=== PATIENT | female | born 1975 | race Caucasian/White ===

== ENCOUNTER 2016-07-14 19:16 | Emergency (ER) | payer OTHER ==
[~2016-07-14] VITALS: Ht 162.6 cm; Wt 90.7 kg
[2016-07-14 19:42] VITALS: BP 151/94
--- NOTE | 2016-07-14 21:03 | ED ANKLE/FOOT INJURY COMPLAINT ---
History of Present Illness General Chief Complaint: Foot or Ankle Injury Stated Complaint: L FOOT INJURY Source: patient Exam Limitations: no limitations Vital Signs & Intake/Output Vital Signs & Intake/Output Vital Signs Date Time Temp Pulse Resp B/P Pulse O2 O2 Flow FiO2 Ox Delivery Rate 07/14 1941 98 20 151/94 97 Room Air Allergies Coded Allergies: codeine (HIVES 07/14/16) Triage Note: PER PT SEEN AT [facility] EARLY AM, FOR BACK AND SCIATICA PAIN XR AND PAIN MEDS WITH GOOD EFFECT, WENT HOME SLEPT IT OFF AND WHEN AWOKE COULD NOT FEEL L FOOT BEND OVER IT NOW SWOLLEN AND DEFORMITY ? FX. DENIES PAIN. Triage Nurses Notes Reviewed? yes Occurred: just prior to arrival Duration: hour(s): Timing: recent history Severity: moderate, severe Pain/Injury Location: Left: Ankle. Method of Injury: twisted No Modifying Factors: none : No Patient currently breastfeeds: No HPI: 40-year-old female comes into emergency room with complaints of left ankle pain. Symptoms have been going on since this afternoon when she twisted her ankle. Patient reports that she was seen at [facility] earlier today because of some low back pain that she had from lifting. Patient was given pain medication to go home with and felt better and reports that this afternoon she twisted her left ankle and felt a pop and has a sharp throbbing pain now. Denies any other associated symptoms. Swelling and pain. (LORIN NG) Past History Travel History Traveled to [place] past 21 day No Medical History Any Pertinent Medical History? see below for history Neurological: NONE EENT: NONE Cardiovascular: hypertension Respiratory: NONE Gastrointestinal: NONE Hepatic: NONE Renal: NONE Musculoskeletal: NONE Psychiatric: NONE Endocrine: HYPOTHYROID Surgical History Surgical History: non-contributory Psychosocial History What is your primary language Ukrainian Tobacco Use: Current Daily Use Daily Tobacco Use Amount/Type: => 5 Cigarettes daily Family History Hx Contributory? No (LORIN NG) Review of Systems Review of Systems Constitutional: Reports: no symptoms. EENTM: Reports: no symptoms. Respiratory: Reports: no symptoms. Cardiovascular: Reports: no symptoms. GI: Reports: no symptoms. Genitourinary: Reports: no symptoms. Musculoskeletal: Reports: see HPI. Skin: Reports: no symptoms. Neurological/Psychological: Reports: no symptoms. Hematologic/Endocrine: Reports: no symptoms. Immunologic/Allergic: Reports: no symptoms. All Other Systems: Reviewed and Negative (LORIN NG) Physical Exam Physical Exam General Appearance: well developed/nourished Head: atraumatic Eyes: Bilateral: normal appearance. Ears, Nose, Throat: normal ENT inspection, hearing grossly normal Neck: normal inspection Cardiovascular/Respiratory: no respiratory distress Back: normal inspection Leg/Knee/Thigh Left: normal range of motion Ankle Left: soft tissue tenderness, swelling, limited range of motion Foot Left: normal inspection, normal range of motion Neuro/Vascular: normal motor function, normal sensation Tendon: normal tendon function Psychiatric: awake, alert, oriented x 3 Skin: intact, normal color, warm/dry (LORIN NG) Progress Differential Diagnosis: fracture, dislocation, sprain, contusion Plan of Care: Orders Procedure Date/time Status XRY-FOOT COMPLETE, LEFT 07/14 1942 Active XRY-ANKLE 3 OR MORE VIEWS L 07/14 1942 Active Diagnostic Imaging: Viewed by Me: Radiology Read. Discussed w/RAD: Radiology Read. Radiology Impression: SERVICE DATE: 07/14/16 EXAM TYPE: RAD - XRY-ANKLE 3 OR MORE VIEWS L; XRY-FOOT COMPLETE, LEFT EXAMINATION: XR ANKLE, LEFT XR FOOT, LEFT CLINICAL INFORMATION: Pain and swelling. COMPARISON: None. TECHNIQUE: Three views of the left ankle and 3 views of the left foot were obtained. FINDINGS: No fracture or dislocation. Slight widening of the tibiotalar articulation laterally. Chronic hypertrophic changes along the distal fibular tip. Mild degenerative changes at the 1st MTP joint. Plantar calcaneal spurring. Bipartite tibial sesamoid adjacent to the 1st metatarsal head. No evidence of significant tibiotalar joint effusion. IMPRESSION: 1. No fracture demonstrated. 2. Chronic hypertrophic changes along the distal fibular tip likely reflects sequela of remote trauma. 3. Slight widening of the lateral aspect of the tibiotalar articulation is age-indeterminate. This may represent a degree of ligamentous laxity and could reflect sequela of prior trauma. DICTATED BY: GLORIA BRUNO MD DATE/TIME DICTATED:07/14/162109 DIE SIZER:SANTO (LORIN NG) Departure Departure Disposition: HOME OR SELF CARE Condition: Stable Clinical Impression Primary Impression: Left ankle sprain Referrals: MIL VIEIRA MD PATIENT HAS NO PRIMARY CARE DR (PCP/Family) Additional Instructions: Ice. Rest. Motrin for pain. Elevation. Follow-up with orthopedic doctor provided if not better in 3-5 days. If symptoms do not improve you'll require further evaluation with possible repeat x-rays as well as evaluation by yard specialist. Sprains can last anywhere from days to weeks. No high impact running or jumping if you have an ankle sprain or any type of lower extremity sprain. Return to normal activity only after symptoms have resolved. Departure Forms: Customer Survey General Discharge Information (LORIN NG) PA/WAREHOUSE PRICING AND INVENTORY CLERK Co-Sign Statement Statement: ED Attending supervision documentation- [] I saw and evaluated the patient. I have also reviewed all the pertinent lab results and diagnostic results. I agree with the findings and the plan of care as documented in the PA's/WAREHOUSE PRICING AND INVENTORY CLERK's documentation. [x] I have reviewed the ED Record and agree with the PA's/WAREHOUSE PRICING AND INVENTORY CLERK's documentation. [] Additions or exceptions (if any) to the PAs/WAREHOUSE PRICING AND INVENTORY CLERK's note and plan are summarized below: [] (KIMBERLY SOUTH,DEANA Bonilla) Procedures Splinting Location: left ankle Manual Alignment Performed: No Pre-Made Type: pneumatic blue Splint Applied By: splint applied by me Pre-Proc Neuro Vasc Exam: normal Post-Proc Neuro Vasc Exam: normal (LORIN NG)
--- NOTE | 2016-07-14 21:25 | RADIOLOGY REPORT ---
EXAMINATION: XR ANKLE, LEFT XR FOOT, LEFT CLINICAL INFORMATION: Pain and swelling. COMPARISON: None. TECHNIQUE: Three views of the left ankle and 3 views of the left foot were obtained. FINDINGS: No fracture or dislocation. Slight widening of the tibiotalar articulation laterally. Chronic hypertrophic changes along the distal fibular tip. Mild degenerative changes at the 1st MTP joint. Plantar calcaneal spurring. Bipartite tibial sesamoid adjacent to the 1st metatarsal head. No evidence of significant tibiotalar joint effusion. IMPRESSION: 1. No fracture demonstrated. 2. Chronic hypertrophic changes along the distal fibular tip likely reflects sequela of remote trauma. 3. Slight widening of the lateral aspect of the tibiotalar articulation is age-indeterminate. This may represent a degree of ligamentous laxity and could reflect sequela of prior trauma.
== END 2016-07-14 21:48 ==
LOC: ERH 19:16
DX: S93.402A Sprain of unspecified ligament of left ankle, initial encounter (principal); X58.XXXA Exposure to other specified factors, initial encounter
CPT/HCPCS: 73610-LT; 73630-LT